=== PATIENT | male | born 1945 | race Caucasian/White ===

== ENCOUNTER 2016-09-01 09:20 | Day surgery (SDC) | payer MEDICARE, BC ==
[2016-08-29 09:40] LABS: HEMOGLOBIN 13.9 g/dL (13.6-17.8)
[2016-08-29 09:57] LABS: CALCIUM, SERUM 8.6 MG/DL (8.5-10.4); CHLORIDE, SERUM 111 MMOL/L (96-112); CO2 (CARBON DIOXIDE) 27 MMOL/L (24-34); CREATININE 1.13 MG/DL (0.70-1.30); GFR AFRICAN AMERICAN 75 ML/MIN (>=60); GFR NON AFRICAN AMERICAN 65 ML/MIN (>=60); GLUCOSE, SERUM 99 MG/DL (60-99); POTASSIUM, SERUM 4.2 MMOL/L (3.5-5.3); SODIUM, SERUM 144 MMOL/L (135-148)
[2016-08-29 09:59] LABS: BUN (BLOOD UREA NITROGEN) 23 MG/DL (6-23)
[2016-08-29 10:22] LABS: ASCORBIC ACID (UR NOT ORDER) 20 (NEG); BILIRUBIN, URINE NEGATIVE (NEG); KETONE, URINE NEGATIVE (NEG); LEUKOCYTE ESTERASE(NOT OR NEG (NEG); WBC (NOT ORDERED) (RFLEX) 1 (0-5)
--- NOTE | ~2016-09-01 | OP ---
Record Of Operation [facility] [address] [place]. [address] NAME: KAT ALMEIDA : 43 STATUS : REG [facility]#: [id number] AGE: 70 ADM/REG DATE : 09/01/16 MR#: [id number] REPORT SERV DATE: 09/01/16 DICTATED BY: FERNANDO LOCKE DATE: 09/01/16 REPORT STATUS : Draft TRANSCRIBED BY: MODL DATE: 09/01/16 DATE OF PROCEDURE: 09/01/2016 TITLE OF OPERATION: 1. Cystourethroscopy. 2. Bladder biopsy with fulguration. 3. Bilateral retrograde pyelograms. PREOPERATIVE DIAGNOSIS: Positive urine cytology. POSTOPERATIVE DIAGNOSIS: Positive urine cytology. INDICATIONS: Mr. Almeida is a very pleasant 70-year-old male with history of a radical prostatectomy. He developed severe urge and overactive bladder. He also has history of gross hematuria. CT scan was negative. Urine cytology was positive. He is here for comprehensive evaluation. ANESTHESIA: General. COMPLICATIONS: None. IMPLANTS: 16-Mexican Martinez catheter. SPECIMEN: 1. Bladder wash for cytology. 2. Trigone and bladder neck biopsies for pathology. 3. Random bladder biopsies for pathology. 4. Left renal pelvis wash for cytology. 5. Right renal pelvis wash for cytology. NARRATIVE: The patient was brought to the operating room, identified by his wristband. General anesthesia was induced. Ancef was given for preoperative antibiotics. He was placed in dorsal lithotomy position, prepped and draped in sterile fashion. A cystoscope was placed into his urethra and into his bladder. The bladder was systematically inspected. There was no sessile tumors or other abnormalities. There was somewhat suspicious area in his trigone and bladder neck area. These areas were biopsied and with a flexible biopsy forceps sent to pathology for analysis. These were labeled as bladder neck and trigone biopsies. Bleeding was controlled with Bugbee electrocautery. Next, several random bladder biopsies were taken from the posterior wall and lateral welch. It was sent to pathology as random bladder biopsies. Hemostasis was obtained with Bugbee electrocautery. Prior to doing all this, a bladder wash was re-sent for cytology. Also, a right retrograde pyelogram was shot with a 5-Mexican open-ended catheter. The ureter was normal. There were no filling defects. There were no filling defects in the kidney. The 5-Mexican open-ended catheter was advanced into the right renal pelvis and urine was evacuated and sent to pathology as right renal pelvis wash. Similarly on the left side, a new catheter was placed into the distal ureter and a retrograde pyelogram was shot, which showed normal left ureter and left renal Record Of Operation [facility] [address] [place]. [address] NAME: KAT ALMEIDA : 43 STATUS : REG [facility] PAT#: [id number] AGE: 70 ADM/REG DATE : 09/01/16 MR#: [id number] REPORT SERV DATE: 09/01/16 DICTATED BY: FERNANDO LOCKE DATE: 09/01/16 REPORT STATUS : Draft TRANSCRIBED BY: JAMEEL DATE: 09/01/16 pelvis, and major and minor calices. There is no filling defects or abnormalities. The catheter was advanced to the level of the renal pelvis. This urine was evacuated and sent to pathology as left renal pelvis wash for cytology. There was no bloody efflux of urine from either side. There was no ongoing bleeding. The bladder was drained. A 16-Mexican Martinez catheter was placed. It will be removed in the recovery room. I will see him back in one weeks' time. KARISSA/JAMEEL Fernando Locke MD / [id number] CC: MD Nazanin Crawford M.D.
[~2016-09-01 09:20] MED LIST: AMB10 PO; ASA5GR PO; ASAB PO; ASTEPRO0.15 % NAS; AUG875 PO; CIALIS20 MG PO; DITROPAN XL10 MG PO; LIPITOR40 PO; LOP25 PO; MYRBETRIQ50 MG PO; NEXIUM40 PO; PLAVIX PO; TOPXL25 PO
== END 2016-09-01 17:35 | disposition home or self-care (01) ==
LOC: SDC 09:20
PROVIDERS: Urology
PROC: 0TBB8ZX Excision of Bladder, Via Natural or Artificial Opening Endoscopic, Diagnostic (ICD-10-PCS; 2016-09-01)
PROC: 0TBB8ZX Excision of Bladder, Via Natural or Artificial Opening Endoscopic, Diagnostic (ICD-10-PCS; 2016-09-01)
PROC: 0TBB8ZX Excision of Bladder, Via Natural or Artificial Opening Endoscopic, Diagnostic (ICD-10-PCS; principal; 2016-09-01 11:00)
DX: C67.9 Malignant neoplasm of bladder, unspecified (principal); C65.2 Malignant neoplasm of left renal pelvis; C65.1 Malignant neoplasm of right renal pelvis; G47.33 Obstructive sleep apnea (adult) (pediatric); E78.5 Hyperlipidemia, unspecified; Z86.73 Personal history of transient ischemic attack (TIA), and cerebral infarction without residual deficits; Z95.1 Presence of aortocoronary bypass graft; Z79.899 Other long term (current) drug therapy; Z79.82 Long term (current) use of aspirin
CPT/HCPCS: 74420; 80048; 81001; 85014; 85018; 88112; 88305; 93005; C1758; J0690; J2405; J2710; J3010; Q9967

== ENCOUNTER 2016-09-27 16:33 | Emergency (ER) | payer MEDICARE, BC ==
[2016-09-27 14:50] LABS: BASOPHILS 0.2 %; BASOPHILS ABSOLUTE 0.02 10/3/uL (0.0-0.16); EOSINOPHILS 2.6 %; EOSINOPHILS ABSOLUTE 0.26 10/3/uL (0.0-0.53); ER CBC TAT 0 Hrs 07 Mins; HEMATOCRIT 34.4 % (40.0-51.0); HEMOGLOBIN 11.4 g/dL (13.6-17.8); IMMATURE GRANULOCYTES 0.1 %; IMMATURE GRANULOCYTES ABSOLUTE 0.01 10/3/uL (0.0-0.11); LYMPHOCYTES 21.7 %; LYMPHOCYTES ABSOLUTE 2.19 10/3/uL (0.67-4.30); MANUAL DIFF NO %; MEAN CORPUS HGB CONC 33.1 g/dL (32.0-36.0); MEAN CORPUSCULAR VOLUME 90.5 fL (80-100); MEAN PLATELET VOLUME 10.2 fL (9.2-13.0); MONOCYTES 9.5 %; MONOCYTES ABSOLUTE 0.96 10/3/uL (0.21-1.20); NEUTROPHILS 65.9 %; NEUTROPHILS ABSOLUTE 6.65 10/3/uL (2.02-8.40); PLATELET COUNT 208 10/3/uL (150-400); RBC DISTRIBUTION WIDTH 12.6 % (12.0-16.0); WHITE BLOOD CELLS 10.1 10/3/uL (4.5-10.5)
[2016-09-27 15:00] LABS: INTERNATIONAL NORMAL RATI 1.1 UNITS (-); PARTIAL THROMBO TIME 28.6 SEC (22.5-37.2); PROTIME (NOT ORD) 13.9 SEC (12.0-14.5)
[2016-09-27 15:03] LABS: BUN (BLOOD UREA NITROGEN) 17 MG/DL (6-23); CALCIUM, SERUM 9.3 MG/DL (8.5-10.4); CHLORIDE, SERUM 108 MMOL/L (96-112); CO2 (CARBON DIOXIDE) 28 MMOL/L (24-34); CREATININE 1.17 MG/DL (0.70-1.30); GFR AFRICAN AMERICAN 72 ML/MIN (>=60); GFR NON AFRICAN AMERICAN 62 ML/MIN (>=60); GLUCOSE, SERUM 141 MG/DL (60-99); POTASSIUM, SERUM 3.8 MMOL/L (3.5-5.3); SODIUM, SERUM 136 MMOL/L (135-148)
[2016-09-27 15:51] LABS: ASCORBIC ACID (UR NOT ORDER) NEG (NEG); BILIRUBIN, URINE NEGATIVE (NEG); ER URINALYSIS TAT 0 Hrs 13 Mins; KETONE, URINE NEGATIVE (NEG); LEUKOCYTE ESTERASE(NOT OR NEG (NEG); NITRITE (URINE) POS (NEG)
[2016-09-27 15:56] LABS: WBC (NOT ORDERED) (RFLEX) > 182 (0-5)
== END 2016-09-27 18:45 | disposition home or self-care (01) ==
LOC: ER 16:33
PROVIDERS: Physician Assistant
DX: R31.9 Hematuria, unspecified (principal); R30.0 Dysuria; Z86.73 Personal history of transient ischemic attack (TIA), and cerebral infarction without residual deficits; Z95.1 Presence of aortocoronary bypass graft; Z88.5 Allergy status to narcotic agent; Z79.82 Long term (current) use of aspirin; Z79.899 Other long term (current) drug therapy
CPT/HCPCS: 76705; 80048; 81001; 85025; 85610; 85730; 87086; 96374; 99284